=== PATIENT | female | born 1940 | race Caucasian/White ===

== ENCOUNTER → 2017-01-13 14:48 | Emergency (ER) | payer MEDICARE, OTHER ==
[2017-01-13 14:57] VITALS: BP 169/83
--- NOTE | 2017-01-13 16:26 | ED ---
Laceration/Wound HPI - HPI Summary HPI Summary: 76 female presents with complaints of left index finger laceration after catching it in hedge clippers while trimming bushes. 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 Patient states bleeding is just oozing. Patient irrigated and cleaned wound. Denies any other injuries and is able to move finger completely. PMHx significant for diabetes and DVTs. No other complaints at this time. no medications. - History of Current Complaint Stated Complaint: LT FINGER INJURY Time Seen by Provider: 01/13/17 15:18 Hx Obtained From: Patient Mechanism of Injury: Sharp/Blunt Trauma Onset/Duration: Sudden Onset Aggravating: Movement Alleviating: Compression Onset Severity: Mild Current Severity: None Pain Intensity: 0 Pain Scale Used: 0-10 Numeric Associated Signs & Symptoms: Erthema Related Hx: Anticoagulat Use, Dominant Hand (Right) - Allergy/Home Medications Allergies/Adverse Reactions: Allergies Allergy/AdvReac Type Severity Reaction Status Date / Time Codeine Allergy Itching Verified 01/13/17 15:44 PMH/Surg Hx/FS Hx/Imm Hx Endocrine/Hematology History: Reports: Hx Anticoagulant Therapy, Hx Diabetes Cardiovascular History: Reports: Hx Deep Vein Thrombosis - Surgical History Surgery Procedure, Year, and Place: n/a - Immunization History Immunizations Up to Date: Yes Infectious Disease History: No Infectious Disease History: Denies: Traveled Outside the [place] in Last 30 Days - Family History Known Family History: Positive: None - Social History Alcohol Use: None Substance Use Type: Reports: None Smoking Status (MU): Unknown if Ever Smoked Review of Systems Constitutional: Negative Cardiovascular: Negative Respiratory: Negative Gastrointestinal: Negative Positive: Other - laceration to left index Neurological: Negative All Other Systems Reviewed And Are Negative: Yes Physical Exam Triage Information Reviewed: Yes Vital Signs On Initial Exam: Initial Vitals Temp Pulse Resp BP Pulse Ox 98.8 F 66 16 169/83 96 01/13/17 14:54 01/13/17 14:54 01/13/17 14:54 01/13/17 14:54 01/13/17 14:54 Vital Signs Reviewed: Yes Appearance: Positive: Well-Appearing, No Pain Distress, Well-Nourished Skin: Positive: Warm, Skin Color Reflects Adequate Perfusion, Dry, Other - small 1cm superficial, epidermal layer laceration on anterior left index finger. minmal bleeding, oozing. no surrounding ecchymosis, cellulitis or concern of fracture/further injury.. Negative: Numb, Cyanosis @, Diaphoretic Head/Face: Positive: Normal Head/Face Inspection Eyes: Positive: Normal, Conjunctiva Clear Neck: Positive: Supple, Nontender Respiratory/Lung Sounds: Positive: Clear to Auscultation, Breath Sounds Present. Negative: Rales, Rhonchi, Wheezes Cardiovascular: Positive: Normal, RRR, Pulses are Symmetrical in both Upper and Lower Extremities - 2+ radial bilaterally. Negative: Murmur, Rub Abdomen Description: Positive: Nontender Bowel Sounds: Positive: Present Musculoskeletal: Positive: Normal, Strength/ROM Intact Neurological: Positive: Normal, Sensory/Motor Intact, Alert, Oriented to Person Place, Time, CN Intact II-III, Reflexes Intact, NV Bundle Intact Distally, Normal Gait Psychiatric: Positive: Affect/Mood Appropriate AVPU Assessment: Alert Diagnostics - Vital Signs Vital Signs Temp Pulse Resp BP Pulse Ox 01/13/17 15:24 98.8 F 66 16 169/83 96 01/13/17 14:54 98.8 F 66 16 169/83 96 - Laboratory Lab Statement: Any lab studies that have been ordered have been reviewed, and results considered in the medical decision making process. Laceration Repair Course/Dx - Course Course Of Treatment: no concern for fracture or further injury. due to laceration length and depth used skin adhesive. minimal bleeding and after adhesive, no bleeding, completely controlled. was irrigated before hand and dressed. patient tolerated procedure well. aware of worsening signs and symptoms such as infection. also stated she had stitches ~1 year ago and believes she had TDAP updated however is not 100% sure. States she has an appointment with her PCP on Tuesday when she will make sure it is UTD and recieve it if it is not. Follow up PCP. Keep wound clean and dry. - Differential Dx Differental Diagnoses: Abrasion, Avulsion, Hematoma, Laceration - Clinical Impression Provider Diagnoses: Laceration of index finger of left hand without complication Discharge - Discharge Plan Condition: Stable Disposition: HOME Patient Education Materials: Skin Adhesive Care (ED), Laceration (ED) Referrals: Non Staff,Doctor [Primary Care Provider] - Additional Instructions: Do not get finger wet for the next 48 hours. You may remove dressing after 48 hours, unless there is concern for having to take it off (too tight, bleeding). Follow up with PCP on tuesday and be sure to check if your tetanus is up to date. Keep wound clean and dry. You may keep covered after removing original dressing. Apply triple antibiotic ointment. If you develop worsening signs or symptoms such as infection please seek medical attention promptly. Elevate your finger.
== END | disposition home or self-care (01) ==
LOC: ED 14:48
DX: S61.311A Laceration without foreign body of left index finger with damage to nail, initial encounter (principal); W45.8XXA Other foreign body or object entering through skin, initial encounter; Y93.H2 Activity, gardening and landscaping; Y92.9 Unspecified place or not applicable; E11.9 Type 2 diabetes mellitus without complications; Z86.718 Personal history of other venous thrombosis and embolism; Z88.5 Allergy status to narcotic agent
CPT/HCPCS: 12001; 99282